=== PATIENT | female | born 1990 | race Caucasian/White ===

== ENCOUNTER 2021-01-26 20:27 | Emergency (ER) | payer OTHER, SELFPAY ==
[2021-01-26 20:44] VITALS: BP 145/100; PULSE 80; RESP 18; TEMP 36.6; O2SAT 98; BMI 27.3
[2021-01-26 21:25] LABS: Bacteria Urine Many (>30); RBC Urine 5-10/HPF (0-5/HPF); Renal Epithelial Cells Urine 1-5/HPF (0-1/HPF); WBC Urine 5-10/HPF (0-5/HPF)
[2021-01-26 21:26] LABS: Culture Indicated Urine Specimen Cultured
[2021-01-27 00:38] LABS: Pregnancy Test Urine Negative (Negative)
--- NOTE | 2021-01-27 00:50 | PC.NURSE ---
Pt states when urinating at home felt something come out of vagina. states grabbed it from the toilet and it appears to be some tissue. Pt brought it with her. states has had spotting and abdominal cramping.
--- NOTE | 2021-01-27 01:00 | ED.FEMALEGU ---
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 Quantitative HCG done prior to deployment was negative. She is on oral contraceptives and cycles every 3 months. She has approximately 1 week from anticipate withdrawal bleed. Over the last 3 days she has been having mild spotting in increasing pelvic cramping. Today she had some more solid debris from her vagina that did not appear to be blood clot in did appear to be some type of vascular tissue. She comes to the ER for further evaluation. She complains of no fever, dizziness, orthostasis, black or bloody stool, diarrhea, chest pain, palpitations, cough or wheeze. Review of Systems Review of Systems Narrative: Remainder of complete review of systems is otherwise unremarkable except for that included in the HPI. Patient History alcohol intake frequency: a few times a month Substance Use Type: does not use Exam Narrative Exam Narrative: General: Alert appropriate in no acute distress Respiratory: Able to speak in full sentences, no obvious respiratory distress Skin: No obvious rashes, warm and dry Neurologic: Grossly intact no obvious asymmetries or abnormalities Psych, appropriate insight and affect, cooperative Speculum exam: Small cervix closed os small amount of bleeding from the os normal vaginal leger. Bedside ultrasound is performed She has a 4.1 x 5.3 cm uterus with a 0.5 cm endometrial lining that appears homogeneous Initial Vital Signs Initial Vital Signs: Vital Signs Temperature 98 F 01/26/21 20:44 Pulse Rate 80 01/26/21 20:44 Respiratory Rate 18 01/26/21 20:44 Blood Pressure 145/100 H 01/26/21 20:44 Pulse Oximetry 98 01/26/21 20:44 Course Orders Ordered: ED Orders 01/26/21 21:10 Urine Culture Stat Urine Microscopic Stat 01/27/21 00:29 Test Urine Stat Vital Signs Vital signs: Vital Signs - 8 hr 01/26/21 20:44 01/27/21 01:12 Temperature 98 F Pulse Rate 80 79 Respiratory Rate 18 17 Blood Pressure 145/100 H 143/88 H Pulse Oximetry 98 97 MDM - Female Genitourinary Lab Data Labs: Lab Results 01/26/21 01/26/21 Range/Units 21:10 21:10 Urine RBC 5-10/hpf H (0-5/HPF) Urine WBC 5-10/hpf H (0-5/HPF) Ur Renal Epithelial Cell 1-5/hpf H (0-1/HPF) Urine Bacteria Many (>30) H (None) Ur Culture Indicated? Specimen cultured Urine Test Negative (Negative) Point of Care Testing Test Results Negative Urine Dip Bedside Urine Glucose Negative Bedside Urine Bilirubin - Negative Bedside Urine Ketone - Negative Urine Specific Marion 1.020 Bedside Urine Occult Blood +++ Bedside Urine pH 6.0 Bedside Urine Protein +/- 15 Bedside Urine Urobilinogen - Negative Bedside Urine Nitrite + Positive Bedside Urine Leukocytes - Negative Esterase MDM Narrative Medical decision making narrative: Bedside ultrasound is performed She has a 4.1 x 5.3 cm uterus with a 0.5 cm endometrial lining that appears homogeneous. Debris/vaginal discharge is examined and looks like a large piece of endometrial lining with vascular component to it. It does not appear to be related in any way to product of conception and urine test is negative today (negative hCG blood work 2 days ago). I suspect that she is having hyperplastic type bleeding at the end of 3 months of control pills. As she is already spotting I recommended that she go ahead and stop pills as of today and expect to have her usual withdrawal bleed and then can safely restart her q.3 months cycling after that. There is no evidence of or hCG producing tumor and no evidence of cervical or vaginal abnormalities today. She is safe for home discharge Discharge Plan Departure Patient Disposition: Home Clinical Impression: Benign endometrial hyperplasia Instructions: DI for Vaginal Bleeding Activity Restrictions/Additional Instructions: Thank you for coming in today You are definitely not . The lining of your uterus is slightly thickened but still well within normal limits. With the three-month cycling control pills, I suspect that the lining has just built up enough that it is sloughing off (that is what a normal menstrual cycle is). The bit of tissue that you brought in looks like endometrial tissue. As you only have 1 week left of active control pills, I would suggest that you go ahead and simply stop them. You are going to continue bleeding so you might as well simply have your withdrawal period now rather than spot for a week and then have it Is okay to restart your control pills in about a week and continue them as prescribed I hope you have a great deployment to [place]!
[2021-01-27 01:12] VITALS: BP 143/88; PULSE 79; RESP 17; O2SAT 97
== END 2021-01-27 01:14 | disposition home or self-care (01) ==
PROVIDERS: Emergency Provider Emergency Medicine
DX: N85.01 Benign endometrial hyperplasia (principal)
CPT/HCPCS: 81003; 81015; 81025; 87077; 87086; 87186; 99282

== ENCOUNTER 2021-09-24 17:53 | Emergency (ER) | payer OTHER, SELFPAY ==
[2021-09-24 18:04] VITALS: BP 138/79; PULSE 116; RESP 20; TEMP 37.3; O2SAT 100; BMI 25.8
--- NOTE | 2021-09-24 18:21 | ED_ITS ---
HPI - Allergic Reaction General Chief complaint: Allergic Reaction Stated complaint: Hives all over, diff breathing, Time Seen by Provider: 09/24/21 18:17 Source: patient Mode of arrival: Ambulatory History of Present Illness HPI narrative: 30-year-old woman with a history of hypertension has been on 15 mg of lisinopril for a number of years, control pills and no other significant medical history presents with an acute allergic reaction. She notes that she [place] the night at a casino last night, she had a cider which is not unusual for her and woke up about 4 in the morning concerned that perhaps there were bed bugs because she was itching all over. She noticed add erythematous urticarial rash over the majority of her body sparing [place] and soles, not as much involvement over her face involving the entire abdomen torso and to a lesser extent down both extremities. Also involving scalp. She describes no obvious bug bites, no unusual exposures other than the hotel environment last night. She has never had similar findings. She became mildly vasovagal with an IV started and was vomiting after that but not having no symptoms prior to the IV start. She states that she was a bit more short of breath walking up the stairs than she usually is but does not complain of any wheezing or sense of dyspnea at rest. She is not describing palpitations or abdominal pain. She noted that symptoms continued to worsen until about 2:00 p.m. today. She notes that she did take 50 mg of oral Benadryl at 1:30 pm today. Related Data Previous Rx's Medication Instructions Recorded methylprednisolone 4 mg tablets in 4 mg PO DAILY #21 ea 09/24/21 a dose pack (Medrol (Eliseo)) Review of Systems Review of Systems Narrative: Remainder of complete review of systems is otherwise unremarkable except for that included in the HPI. Patient History Medical History (Updated 09/24/21 @ 20:51 by Luz Marina Robles MD) Family planning Hypertension Social History Smoking Status: Never smoker Smoking Status: Never smoker alcohol intake frequency: a few times a month Substance Use Type: does not use Exam Narrative Exam Narrative: General: Actively vomiting, pale but still able to cooperate fully with history and physical. Otherwise well nourished and well developed. HEENT: Moist mucous membranes, normal sclera with reactive pupils, face with mild urticaria over the forehead and extending into the scalp Neck: No cervical adenopathy, supple Respiratory: Lungs are clear to auscultation, no wheezing no rales no rhonchi. Full and symmetrical air movement Cardiac: Regular rate and rhythm no murmurs no bruits Abdomen: Soft, nontender, good bowel tones, no flank pain Skin: Warm and dry, urticarial erythema most dense over the torso extending out over all extremities Neurologic: Grossly neurologically intact with no obvious asymmetries or abnormalities Extremities: No trauma, well perfused Psych: Cooperative, appropriate insight and affect Initial Vital Signs Initial Vital Signs: Vital Signs Temperature 99.1 F 09/24/21 18:04 Pulse Rate 116 H 09/24/21 18:04 Respiratory Rate 20 09/24/21 18:04 Blood Pressure 138/79 09/24/21 18:04 Pulse Oximetry 100 09/24/21 18:04 Course Orders Ordered: ED Orders 09/24/21 18:19 Complete Blood Count AUTO DIFF Stat Comprehensive Metabolic Panel Stat Discontinued Medications Diphenhydramine HCl (Diphenhydramine 50 Mg/Ml Vial) 25 mg IV NOW ONE Stop: 09/24/21 18:21 Last Admin: 09/24/21 18:39 Dose: 25 mg Documented by: GIULIANA Sodium Chloride (Normal Saline 0.9%) 1,000 mls @ 1,000 mls/hr IV BOLUS ONE Stop: 09/24/21 19:19 Last Infusion: 09/24/21 20:01 Dose: 0 mls/hr Documented by: Admin: 09/24/21 18:39 Dose: 1,000 mls/hr Documented by: GIULIANA Methylprednisolone (Methylprednisolone 125 Mg/2 Ml Vial) 125 mg IV NOW ONE Stop: 09/24/21 18:21 Last Admin: 09/24/21 18:39 Dose: 125 mg Documented by: GIULIANA Ondansetron HCl (Ondansetron 4 Mg/2 Ml Inj) 4 mg IV NOW ONE Stop: 09/24/21 18:21 Last Admin: 09/24/21 18:40 Dose: 4 mg Documented by: GIULIANA Vital Signs Vital signs: Vital Signs - 8 hr 09/24/21 18:04 Temperature 99.1 F Pulse Rate 116 H Respiratory Rate 20 Blood Pressure 138/79 Pulse Oximetry 100 MDM - Allergic Reaction Lab Data Result diagrams: 09/24/21 18:19 09/24/21 18:19 Labs: Lab Results 09/24/21 09/24/21 Range/Units 18:19 18:19 WBC 16.8 H (4.5-11.0) X10^3/uL RBC 4.58 (4.0-5.2) X10^6/uL Hgb 14.0 (12.0-16.0) g/dL Hct 41.5 (36-46) % MCV 90.7 (80-100) fL MCH 30.6 (26-34) PG MCHC 33.7 (30-36) % RDW 14.2 (11.6-14.8) % Plt Count 363 (150-400) X10^3/uL Neut % (Auto) 87.0 H (50-75) % Lymph % (Auto) 9.2 L (25-40) % [place] % (Auto) 3.2 (3-14) % Eos % (Auto) 0.2 L (2-4) % Baso % (Auto) 0.4 (0-2) % Neut # (Auto) 95543 H (7581-1381) /uL Lymph # (Auto) 1600 (5545-1909) /uL [facility] [place] # (Auto) 500 (0-900) /uL Eos # (Auto) 0 (0-450) /uL Baso # (Auto) 100 (0-100) /uL Sodium 134 L (137-145) mmol/L Potassium 4.3 (3.4-5.1) mmol/L Chloride 105 (98-107) mmol/L Carbon Dioxide 23 (22-32) mmol/L BUN 13 (7-17) mg/dL Creatinine 0.98 (0.52-1.04) mg/dL Estimated GFR > 60.0 (>60) mL/min BUN/Creatinine Ratio 13.3 (6-22) Glucose 115 H (70-100) mg/dL Calcium 9.3 (8.4-10.2) mg/dL Total Bilirubin 0.4 (0.2-1.3) mg/dL AST 27 (14-36) IU/L ALT 19 (<35) IU/L Alkaline Phosphatase 75 (38-126) U/L Total Protein 7.1 (6.3-8.2) g/dL Albumin 4.1 (3.5-5.0) g/dL Globulin 3.0 (1.7-4.1) g/dL Albumin/Globulin Ratio 1.4 (1.0-2.8) MDM Narrative Medical decision making narrative: 30-year-old woman with acute allergic reaction uncertain etiology. Significant hives/rash but no wheezing or airway issues. Better but not completely resolved after IV Benadryl and IV Solu-Medrol. Will recommend 1 week of a nonsedating antihistamine and a Medrol Dosepak. Instructed her to return should she have any airway symptoms in clearly reviewed those with her. She is safe for home discharge at this time Discharge Plan Departure Patient Disposition: Home Clinical Impression: Allergic reaction, Urticaria Instructions: DI for Anaphylaxis Activity Restrictions/Additional Instructions: Thank you for coming in today You clearly a responding to something in the environment in the hotel room or casino. Often times he will never quite figure out what it is exactly. This was not anteflexed this today but was a significant allergic reaction. Your given IV Benadryl and IV steroids in the emergency department I would suggest that you continue a week of 1 of the nonsedating antihistamines either Claritin, Chloe, Zyrtec or the generic version there of I will give you a prescription for a Medrol Dosepak which is a decreasing dose of steroid for the next 5 days. If you have worsening symptoms of any type, please feel free to return to the emergency department Prescriptions: New methylprednisolone [Medrol (Eliseo)] 4 mg tablets,dose pack 4 mg PO DAILY Qty: 21 0RF
[2021-09-24 18:29] LABS: Add Manual Diff / Slide Review NO; Basophils Absolute Auto 100 /uL (0-100); Basophils Percent Auto 0.4 % (0-2); Eosinophils Absolute Auto 0 /uL (0-450); Eosinophils Percent Auto 0.2 % (2-4); Hematocrit 41.5 % (36-46); Lymphocytes Absolute Auto 1600 /uL (1100-4500); Lymphocytes Percent Auto 9.2 % (25-40); Mean Corpuscular HGB Conc 33.7 % (30-36); Mean Corpuscular Hemoglobin 30.6 PG (26-34); Mean Corpuscular Volume 90.7 fL (80-100); Monocytes Absolute Auto 500 /uL (0-900); Monocytes Percent Auto 3.2 % (3-14); Neutrophils Absolute Auto 14700 /uL (1500-7000); Platelet Count 363 X10^3/uL (150-400); Red Blood Cell Count 4.58 X10^6/uL (4.0-5.2); Red Cell Distribution Width 14.2 % (11.6-14.8); White Blood Cell Count 16.8 X10^3/uL (4.5-11.0)
[2021-09-24] MEDS: methylPREDNISolone 125 MG/2 ML VIAL IV (18:39)
[2021-09-24] MEDS: diphenhydrAMINE 50 MG/ML VIAL 25 MG IV (18:39)
[2021-09-24] MEDS: SODIUM CHLORIDE 0.9% 1,000 ML 1000 ML IV (18:39)
[2021-09-24] MEDS: ONDANSETRON 4 MG/2 ML INJ IV (18:40)
[2021-09-24 18:45] LABS: Alanine Aminotransferase 19 IU/L (<35); Albumin 4.1 g/dL (3.5-5.0); Albumin Globulin Ratio 1.4 (1.0-2.8); Alkaline Phosphatase 75 U/L (38-126); Aspartate Aminotransferase 27 IU/L (14-36); BUN Creatinine Ratio 13.3 (6-22); Bilirubin Total 0.4 mg/dL (0.2-1.3); Blood Urea Nitrogen 13 mg/dL (7-17); Calcium 9.3 mg/dL (8.4-10.2); Carbon Dioxide 23 mmol/L (22-32); Chloride 105 mmol/L (98-107); Estimated Glomerular Filt Rate > 60.0 mL/min (>60); Glucose 115 mg/dL (70-100); HEMOLYSIS < 15 (0-50); Potassium 4.3 mmol/L (3.4-5.1); Sodium 134 mmol/L (137-145); Total Protein 7.1 g/dL (6.3-8.2)
[2021-09-24 21:12] VITALS: BP 118/77; PULSE 81; RESP 16; O2SAT 100
== END 2021-09-24 21:12 | disposition home or self-care (01) ==
PROVIDERS: Emergency Provider Emergency Medicine
DX: T78.40XA Allergy, unspecified, initial encounter (principal); L50.9 Urticaria, unspecified
CPT/HCPCS: 80053; 85025; 96361; 96374; 96375; 99283; 99284; J1200; J2405; J2930